=== PATIENT | female | born 1950 ===

== ENCOUNTER 2018-03-28 06:00 | Day surgery (SDC) | payer OTHER | END 2018-03-28 11:10 | disposition home or self-care (01) | LOC: AMB-ENDOS 06:00 | DX: D12.0 Benign neoplasm of cecum (principal); D12.4 Benign neoplasm of descending colon; K64.2 Third degree hemorrhoids ==

== ENCOUNTER 2019-09-11 09:32 | Day surgery (SDC) | payer OTHER | END 2019-09-11 15:50 | disposition home or self-care (01) | LOC: AMB-ENDOS | DX: K57.33 Diverticulitis of large intestine without perforation or abscess with bleeding (principal); K57.30 Diverticulosis of large intestine without perforation or abscess without bleeding; K64.1 Second degree hemorrhoids ==